=== PATIENT | female | born 1955 | race Caucasian/White ===

== ENCOUNTER → 2025-01-06 | Outpatient (CLI) | payer MEDICARE ==
--- NOTE | 2025-01-06 11:56 | HMCIMG ---
EXAM: LUMBAR SPINE 2-3VWS REASON: PAIN IN RIGHT HIP, PAIN IN LEFT HIP. COMPARISON: None. TECHNIQUE: 3 views of the lumbar spine were obtained. FINDINGS: There is 24 degrees levoscoliosis epicentered at L2-3. Alignment appears normal on the lateral view. There are anterior osteophytes at multiple levels. There are degenerative changes in the facets at L3, L4 and L5. Soft tissues appear unremarkable. IMPRESSION: 1. 24 degrees levoscoliosis with associated degenerative change.
--- NOTE | 2025-01-06 11:59 | HMCIMG ---
HIP BILAT 2VW REASON: PAIN IN RIGHT HIP, PAIN IN LEFT HIP COMPARISON: None TECHNIQUE: AP pelvis and bilateral hip views were obtained, 3 views total. FINDINGS: There are are normal-appearing bones of the pelvis. SI joints appear normal as do hip joint spaces. There are no fractures. Proximal femurs appear unremarkable as well. IMPRESSION: 1. Normal views of the pelvis and both hips.
== END | disposition home or self-care (01) ==
LOC: RAH 10:22
PROVIDERS: ATTEND Internal Medicine
DX: M47.816 Spondylosis without myelopathy or radiculopathy, lumbar region (principal); M41.86 Other forms of scoliosis, lumbar region; M25.551 Pain in right hip; M25.552 Pain in left hip
CPT/HCPCS: 72100; 73521

== ENCOUNTER → 2025-03-30 | Outpatient (CLI) | payer MEDICARE ==
--- NOTE | 2025-03-30 16:27 | HMCIMG ---
Exam Type: KNEE 3VWS LT Clinical Information: PAIN IN LEFT KNEE Comparison: None Findings: There are degenerative changes with narrowing of the medial femorotibial joint space, with subchondral sclerosis. No acute fractures are seen. The soft tissues appear normal. Impression: Degenerative changes medial compartment.
--- NOTE | 2025-03-30 16:27 | HMCIMG ---
Exam Type: SHOULDER COMP 2+VWS RT Clinical Information: RIGHT SHOULDER PAIN Comparison: None FINDINGS: The examination is unremarkable. Specifically, the glenohumeral and acromioclavicular joints are preserved. Visualized portions of the humerus, the scapula, and the clavicle as well as the upper ribcage are unremarkable. No pulmonary pathology is noted in the visualized portions of the upper lobe. The soft tissues are preserved. There are no other gross abnormalities. IMPRESSION: NORMAL EXAMINATION.
== END | disposition home or self-care (01) ==
LOC: RAH 14:15
PROVIDERS: ATTEND Physician Assistant
DX: M17.12 Unilateral primary osteoarthritis, left knee (principal); M25.862 Other specified joint disorders, left knee; M25.562 Pain in left knee; M25.511 Pain in right shoulder
CPT/HCPCS: 73030; 73562